=== PATIENT | male | born 1985 | race African-American/Black ===

== ENCOUNTER 2017-08-09 19:59 | Emergency (ER) | payer SELFPAY ==
[~2017-08-09] VITALS: Ht 170.2 cm; Wt 54.4 kg
[2017-08-09 20:11] VITALS: BP 113/50
--- NOTE | 2017-08-09 21:00 | NUR ---
CALLED PT IN [place], NO RESPONE
== END 2017-08-09 21:02 | disposition left against medical advice (07) ==
LOC: ER 20:01
DX: Z53.21 Procedure and treatment not carried out due to patient leaving prior to being seen by health care provider (principal)
CPT/HCPCS: A4606; Z7610